=== PATIENT | male | born 1985 | race Caucasian/White ===

== ENCOUNTER 2016-08-15 10:12 | Emergency (ER) | payer BC ==
[~2016-08-15] VITALS: Ht 190.5 cm; Wt 139.0 kg
[2016-08-15 12:31] VITALS: BP 133/74
== END 2016-08-15 12:27 | disposition home or self-care (01) ==
LOC: EME 10:12
PROC: 2W3RX1Z Immobilization of Left Lower Leg using Splint (ICD-10-PCS; principal; 2016-08-15)
DX: S92.255A Nondisplaced fracture of navicular [scaphoid] of left foot, initial encounter for closed fracture (principal); X58.XXXA Exposure to other specified factors, initial encounter
CPT/HCPCS: 73630; 99281; 99283